=== PATIENT | female | born 2000 | race Caucasian/White ===

== ENCOUNTER 2021-03-18 05:48 | Emergency (ER) | payer BC ==
[~2021-03-18 05:48] MED LIST: CIPRO500 MG PO; CLARITIN10 MG PO; FLAGYL500 MG PO; FLONASE 0.05% N16 GM; FLOVENT 220.1 GM/INH INH; IBUPROFEN800 MG PO; LODINE CAP 300300 MG PO; MACROBID 100 M100 MG PO; MEDROL DOSEPAK 24 MG PO; PROAIR DIGIHAL90 MCG INH; PYRIDIUM100 MG PO; TAMIFLU75 MG PO; TESSALON PERLE100 MG PO; ZOFRAN ODT 4 MG4 MG GT; ZOFRAN ODT 4 MG4 MG PO; ZOFRAN ODT 4 MG4 MG SL; ZOFRAN4 MG PO
[2021-03-18] MEDS ORDERED: CEPHALEXIN500 M1 PO (06:11)
== END 2021-03-18 06:56 | disposition home or self-care (01) ==
LOC: ER1 05:48
DX: H60.11 Cellulitis of right external ear (principal); Z88.0 Allergy status to penicillin
CPT/HCPCS: 99282

== ENCOUNTER 2021-04-15 23:28 | Emergency (ER) | payer BC ==
[~2021-04-15 23:28] MED LIST changes: +CEPHALEXIN500 M1 PO
== END 2021-04-15 23:40 | disposition left against medical advice (07) ==
LOC: ER1 23:28
DX: Z53.21 Procedure and treatment not carried out due to patient leaving prior to being seen by health care provider (principal)

== ENCOUNTER 2022-05-03 17:08 | Emergency (ER) | payer BC ==
[2022-05-03 17:45] LABS: HEMOGLOBIN 13.9 gm/dl (12.3-15.3); RED BLOOD COUNT 4.95 M/UL (4.00-5.10); WHITE BLOOD COUNT 11.8 K/UL (4.5-11.0)
[2022-05-03 18:09] LABS: BUN/CREATININE RATIO 17 (0-10)
== END 2022-05-03 21:53 | disposition home or self-care (01) ==
LOC: ER1 17:08
PROVIDERS: Physician Assistant
DX: R07.9 Chest pain, unspecified (principal); B34.9 Viral infection, unspecified; E66.9 Obesity, unspecified; Z20.822 Contact with and (suspected) exposure to COVID-19
CPT/HCPCS: 0240U; 71045; 80053; 82550; 82553; 84484; 85025; 85379; 93005; 99285

== ENCOUNTER 2022-06-18 13:23 | Emergency (ER) | payer BC ==
[2022-06-18 14:35] LABS: HEMOGLOBIN 13.6 gm/dl (12.3-15.3); RED BLOOD COUNT 4.91 M/UL (4.00-5.10); WHITE BLOOD COUNT 10.5 K/UL (4.5-11.0)
[2022-06-18 14:57] LABS: BUN/CREATININE RATIO 13 (0-10)
[2022-06-18] MEDS ORDERED: VERTICALM25 MG PO (15:19)
== END 2022-06-18 15:52 | disposition home or self-care (01) ==
LOC: ER1 13:23
PROVIDERS: Physician Assistant
DX: R42 Dizziness and giddiness (principal); Z88.0 Allergy status to penicillin
CPT/HCPCS: 80053; 81001; 84703; 85025; 93005; 99284